=== PATIENT | male | born 1975 ===

== ENCOUNTER 2020-04-15 06:21 | Emergency (ER) | payer SELFPAY ==
[~2020-04-15] VITALS: Ht 182.9 cm; Wt 90.9 kg
[2020-04-15 06:39] VITALS: TEMP 97.9
[2020-04-15 07:00] LABS: COLLECTION METHOD CLEAN CATCH
[2020-04-15 07:03] LABS: BASO % 0.4 % (0.0-2.0); EOS # 0.1 (0.0-0.7); GRAN # 7.1 (1.4-6.5); GRAN % 67.7 % (42.2-75.2); HEMATOCRIT 47.5 % (42.0-52.0); HEMOGLOBIN 15.7 g/dl (13.5-18.0); LYMPH # 2.2 (1.2-3.4); LYMPH % 21.3 % (20.0-51.0); MEAN CELL VOLUME 91 fl (80.0-100.0); MEAN CORPUSCULAR HEMOGLOBIN 30 pg (27.0-31.0); MEAN CORPUSCULAR HGB CONC 33 g/dl (33.0-37.0); MEAN PLATELET VOLUME 11.4 fl (7.4-10.4); MONO # 0.9 (0.1-0.6); MONO % 8.6 % (1.7-9.3); PLATELET COUNT 217 K/mm3 (130-400); RED BLOOD COUNT 5.21 M/mm3 (4.20-5.60); REDCELL DISTRIBUTION WIDTH-CV 12.8 % (11.5-14.5)
[2020-04-15 07:16] LABS: ALANINE AMINOTRANSFERASE 16 U/L (4-49); ALBUMIN 4.6 gm/dL (3.5-5.0); ALKALINE PHOSPHATASE 61 U/L (50-136); ANION GAP 9 mmol/L (7-16); AST,SGOT 21 U/L (15-37); BILIRUBIN,TOTAL 1.9 mg/dL (0.0-1.0); BLOOD UREA NITROGEN 13 mg/dL (9-20); C-REACTIVE PROTEIN < 0.5 mg/dL (0.0-0.9); CALCIUM 8.9 mg/dL (8.4-10.2); CARBON DIOXIDE 27 mmol/L (22-30); CHLORIDE 107 mmol/L (98-107); CREATININE, serum 1.11 (0.66-1.25); GLUCOSE 121 mg/dL (74-106); POTASSIUM 3.6 mmol/L (3.4-5.0); SODIUM 143 mmol/L (137-145); TOTAL PROTEIN 7.5 gm/dL (6.4-8.2)
[2020-04-15] MEDS ORDERED: NORCO 325 MG-51 TAB PO (07:29)
[2020-04-15] MEDS ORDERED: FLOMAX 0.40.4 MG/CAP PO (07:30)
[2020-04-15 07:45] LABS: MUCOUS Present /lpf; PH 6 (5-8); SQUAMOUS EPITHELIAL None Seen /hpf; URINE APPEARANCE Cloudy; URINE BACTERIA Rare /hpf; URINE BILIRUBIN Negative (NEGATIVE); URINE BLOOD 3+ (NEGATIVE); URINE COLOR Yellow; URINE GLUCOSE Negative (NEGATIVE); URINE KETONE Trace (NEGATIVE); URINE LEUKOCYTE ESTERASE Negative (NEGATIVE); URINE NITRATE Negative (NEGATIVE); URINE PROTEIN(semi-quant) 1+ (NEGATIVE); URINE RBC >50 /hpf; URINE UROBILINOGEN Negative (NEGATIVE)
[2020-04-15] MEDS ORDERED: OMNICEF 300MG300 MG PO (07:50)
[2020-04-15 09:20] VITALS: BP 130/86; PULSE 77
== END 2020-04-15 09:20 | disposition home or self-care (01) ==
LOC: COL.ER 06:21
PROVIDERS: Emergency Medicine
DX: N20.1 Calculus of ureter (principal)
CPT/HCPCS: J0696; J1170; J1885; J2405; J3010; J7030; Q9967

== ENCOUNTER 2020-04-17 20:58 | Emergency (ER) | payer SELFPAY ==
[~2020-04-17] VITALS: Ht 182.9 cm; Wt 88.2 kg
[~2020-04-17 20:58] MED LIST: FLOMAX 0.40.4 MG/CAP PO; NORCO 325 MG-51 TAB PO; OMNICEF 300MG300 MG PO
[2020-04-17 21:19] VITALS: TEMP 98.6
[2020-04-17 23:37] VITALS: BP 128/89; PULSE 71
== END 2020-04-17 23:55 | disposition home or self-care (01) ==
LOC: COL.ER 20:58
DX: N20.1 Calculus of ureter (principal)
CPT/HCPCS: J1170; J2270; J2405; J7030